=== PATIENT | male | born 1935 | race Caucasian/White ===

== ENCOUNTER → 2021-01-14 | Outpatient (CLI) | payer MEDICARE ==
[~2021-01-14] MED LIST: ASPIRIN EC81 MG PO; AUGMENTIN 875-1 EACH PO; BUDESONIDE EC3 MG PO; COLACE 100MG C100 MG PO; COMMODE; ELIQUIS5 MG PO; FISH OIL 1,0001 EACH PO; K-DUR TAB 20 M20 MEQ PO; LEVOTHYROXINE137 MCG PO; LOPRESSOR 25 MG25 MG PO; OYSTER SHELL C500 MG PO; PLAVIX 75 MG TA75 MG PO; RANEXA1000 MG PO; SYNTHROID 150150 MCG PO; THERAGRAN M TAB1 EA PO; TUMS ULTRA400 MG PO; ULTRA-LIGHT RO1 EACH MC; VITAMIN C1000 MG PO; VITAMIN E400 UNI2 PO; ZANTAC150 MG PO; ZYVOX600 MG PO
== END ==
LOC: RAD 12:57
DX: J20.9 Acute bronchitis, unspecified (principal)
CPT/HCPCS: 71046

== ENCOUNTER → 2021-12-13 | Outpatient (CLI) | payer MEDICARE | LOC: EMI 07:58 | DX: M54.16 Radiculopathy, lumbar region (principal); M48.061 Spinal stenosis, lumbar region without neurogenic claudication | CPT/HCPCS: 72148 ==